=== PATIENT | male | born 1985 | race American Indian/Alaskan Native ===

== ENCOUNTER 2019-08-28 18:17 | Emergency (ER) | payer OTHER ==
[~2019-08-28] VITALS: Ht 172.7 cm; Wt 99.5 kg
[2019-08-28 18:18] VITALS: BP 143/96
== END 2019-08-28 18:59 | disposition home or self-care (01) ==
LOC: M ED 18:17
DX: S86.112A Strain of other muscle(s) and tendon(s) of posterior muscle group at lower leg level, left leg, initial encounter (principal); Y93.67 Activity, basketball; Y92.89 Other specified places as the place of occurrence of the external cause; Y99.8 Other external cause status; X58.XXXA Exposure to other specified factors, initial encounter

== ENCOUNTER → 2019-09-18 | Outpatient (CLI) | payer OTHER | LOC: M LRY 08:57 | PROVIDERS: ATTEND Physician Assistant | DX: M79.662 Pain in left lower leg (principal) ==

== ENCOUNTER 2020-12-31 07:54 | Emergency (ER) | payer OTHER ==
[~2020-12-31] VITALS: Ht 172.7 cm; Wt 104.6 kg
--- OUTSIDE RECORDS SUMMARY | 2020-12-31 07:59 | CCD ---
Author Author [facility] Address Unknown Phone Unavailable Support Name Relationship Address Phone [facility] Next Of Kin [address] [place] [address] Unavailable BONI PERALTA Next Of Kin [address] [facility] [place] [address] Re-disclosure Warning The records that you are about to access may contain information from federally-assisted alcohol or drug abuse programs. If such information is present, then the following federally mandated warning applies: This information has been disclosed to you from records protected by federal confidentiality rules (42 CFR part 2). The federal rules prohibit you from making any further disclosure of this information unless further disclosure is expressly permitted by the written consent of the person to whom it pertains or as otherwise permitted by 42 CFR part 2. A general authorization for the release of medical or other information is NOT sufficient for this purpose. The Federal rules restrict any use of the information to criminally investigate or prosecute any alcohol or drug abuse patient.The records that you are about to access may contain highly sensitive health information, the redisclosure of which is protected by Article 27-F of the [facility] Public Health law. If you continue you may have access to information: Regarding HIV / AIDS; Provided by facilities licensed or operated by the [facility] Office of Mental Health; or Provided by the [facility] Office for People With Developmental Disabilities. If such information is present, then the following [facility] mandated warning applies: This information has been disclosed to you from confidential records which are protected by state law. State law prohibits you from making any further disclosure of this information without the specific written consent of the person to whom it pertains, or as otherwise permitted by law. Any unauthorized further disclosure in violation of state law may result in a fine or residential sentence or both. A general authorization for the release of medical or other information is NOT sufficient authorization for further disc losure. Immunizations Vaccine Date Status Description Data Source(s) COVID-19 VACCINE Pfizer 06/07/2020 12:00:00 AM EDT completed [facility] Vaccine Series Complete: NOThis Data was Submitted to [facility] Via [employer]. Medications No Information Insurance Providers Payer name Policy type / Coverage type Policy ID Covered republican ID Covered republican's relationship to baker Policy Baker Plan Information [facility] [employer] [id number] SP [id number] [facility] HUMA[employer] - O/P [id number] 18 [id number] Problems, Conditions, and Diagnoses No Information Surgeries/Procedures No Information Results ID Date Data Source [id number] 06/23/2020 01:11:00 PM EDT [facility] Name Value Range Interpretation Code Description Data Rajani rce(s) Supporting Document(s) SARS coronavirus 2 RNA Not Detected [facility] This lab was ordered by [facility] and reported by [facility]. Procedure Social History No Information
[2020-12-31] MEDS ORDERED: APAP325T4 PO (08:02)
[2020-12-31] MEDS ORDERED: IBUPROFEN 800 MG TAB PO ONE (11:00)
--- NOTE | 2020-12-31 11:31 | REP ---
INDICATION: R/O L HAMSTRING AVULSION FX. COMPARISON: None. TECHNIQUE: AP pelvis FINDINGS: There is no fracture, dislocation, or subluxation. The hip joint spaces are symmetric and well maintained. IMPRESSION: No osseous abnormality. <Electronically signed by Elan Lara > 12/31/20 [id number]
--- NOTE | 2020-12-31 11:32 | REP ---
INDICATION: R/O L HAMSTRING AVULSION FX. COMPARISON: None. TECHNIQUE: AP and lateral views FINDINGS: There is no acute fracture or destructive osseous lesion. IMPRESSION: No osseous abnormality. <Electronically signed by Elan Lara > 12/31/20 [id number]
[2020-12-31] MEDS ORDERED: IBUP80TA PO (12:11)
[2020-12-31 12:19] VITALS: BP 156/84
== END 2020-12-31 12:28 | disposition home or self-care (01) ==
LOC: M ED 07:54
DX: S76.312A Strain of muscle, fascia and tendon of the posterior muscle group at thigh level, left thigh, initial encounter (principal); X50.0XXA Overexertion from strenuous movement or load, initial encounter; Y92.009 Unspecified place in unspecified non-institutional (private) residence as the place of occurrence of the external cause; Y93.9 Activity, unspecified; Y99.9 Unspecified external cause status